=== PATIENT | male | born 1980 | race Caucasian/White ===

== ENCOUNTER → 2017-03-12 14:57 | Outpatient (CLI) | payer BC | END | disposition home or self-care (01) | LOC: D.US 14:57 | DX: N45.4 Abscess of epididymis or testis (principal) ==

== ENCOUNTER 2019-03-28 18:54 | Emergency (ER) | payer BC ==
[~2019-03-28] VITALS: Ht 180.3 cm; Wt 90.9 kg
[2019-03-28 19:03] VITALS: Ht 180.3 cm; Wt 90.9 kg
[2019-03-28] MEDS ORDERED: BYSTOLIC5 MG PO (19:05)
[2019-03-28] MEDS ORDERED: PRAVACHOL20 MG PO (19:06)
[2019-03-28 19:38] LABS: BASOPHILS 0.3 % (0-2); EOSINOPHILS 1.5 % (0-7); HEMATOCRIT 46.3 % (42.0-54.0); HEMOGLOBIN 16.5 g/dL (13.5-17.5); IMMATURE GRANULOCYTES 0.3 % (0-5); LYMPHOCYTES 31.5 % (15-50); MCH 31.1 pg (26.0-34.0); MCHC 35.6 g/dL (31.0-37.0); MCV 87.2 fL (80.0-100.0); MEAN PLATELET VOLUME 9.3 fL (7.4-10.4); MONOCYTES 7.4 % (2-11); PLATELET COUNT 261 10x3/uL (130-400); RBC 5.31 10x6/uL (4.20-6.10); RDW 13.4 % (11.5-14.5); WBC 10.3 10x3/uL (4.8-10.8)
[2019-03-28 19:49] LABS: ALKALINE PHOSPHATASE 88 U/L (46-116); ALT (SGPT) 39 U/L (10-68); BILIRUBIN - TOTAL 0.34 mg/dL (0.2-1.3); CALC OSMOLALITY 280 mosm/kg (275-300); CARBON DIOXIDE 28.4 mmol/L (21.0-32.0); CHLORIDE - SERUM 103 mmol/L (98-107); CREATININE - SERUM 1.1 mg/dL (0.6-1.3); GLUCOSE 106 mg/dL (74-106); PROTEIN - SERUM 7.5 g/dL (6.4-8.2); SODIUM 140 mmol/L (136-145); UREA NITROGEN 17 mg/dL (7-18); eGFR NON AFRICAN AMERICAN 78 mL/min (90-120)
[2019-03-28 21:20] LABS: APPEARANCE CLEAR (CLEAR); BILIRUBIN NEGATIVE (NEGATIVE); COLOR YELLOW (YELLOW); GLUCOSE NEGATIVE (NEGATIVE); KETONE NEGATIVE (NEGATIVE); NITRITE NEGATIVE (NEGATIVE); PROTEIN NEGATIVE (NEGATIVE); SPECIFIC GRAVITY 1.015 (1.005-1.020); UROBILINOGEN NORMAL (NORMAL)
[2019-03-28] MEDS ORDERED: NAPROSYN500 MG PO (21:20)
[2019-03-28 21:35] VITALS: BP 122/81
== END 2019-03-28 21:33 | disposition home or self-care (01) ==
LOC: D.ER 18:54
PROVIDERS: Family Medicine
DX: M54.6 Pain in thoracic spine (principal); V43.52XA Car driver injured in collision with other type car in traffic accident, initial encounter; Y93.89 Activity, other specified; Y92.410 Unspecified street and highway as the place of occurrence of the external cause